=== PATIENT | female | born 1955 | race Caucasian/White ===

== ENCOUNTER 2025-04-06 13:07 | Inpatient (IN) | payer MEDICARE, OTHER ==
[~2025-04-06] VITALS: Ht 165.1 cm; Wt 67.1 kg
[~2025-04-06 13:07] MED LIST: ACET-653 PO
[2025-04-06] MEDS ORDERED: TAMS1CAP17 PO (13:17)
[2025-04-06] MEDS ORDERED: CYCL1DRO10 OU (13:17)
[2025-04-06] MEDS ORDERED: SEMA0.257 INJ (13:17)
[2025-04-06] MEDS ORDERED: LOSA50TA28 PO (13:17)
[2025-04-06] MEDS ORDERED: ONDA-282 PO (13:17)
[2025-04-06] MEDS ORDERED: OXYC1TAB23 PO (13:17)
[2025-04-06] MEDS ORDERED: CIPR500T39 PO (13:17)
[2025-04-06] MEDS ORDERED: AMIT25TA19 PO (13:17)
[2025-04-06] MEDS: MORPHINE 2 MG/ML 1 ML VIAL IV ONE (14:25)
[2025-04-06] MEDS: NS (Normal Saline) 0.9% 1,000 ML IV ONE (14:25)
[2025-04-06 14:37] LABS: KETONE, URINE AUTO RFX TRACE mg/dL (NEGATIVE); MUCUS, URINE RFX SMALL (NEGATIVE); NITRITE, URINE AUTO RFX NEGATIVE (NEGATIVE); RBC, URINE AUTO RFX TNTC /HPF (0-3); SQUAM EPITHELIAL CELL UR AURFX 3 /HPF (0-6)
[2025-04-06 14:38] LABS: LEUKOCYTE ESTERASE UR AUTO RFX TRACE (NEGATIVE); WBC, URINE AUTO RFX 28 /HPF (0-3)
[2025-04-06 15:00] LABS: BASO # 0.0 10^3/uL (0.0-0.2); BASO % 0.2 % (0.0-1.0); EOS # 0.0 10^3/uL (0.0-0.5); EOS % 0.1 % (0.0-3.0); LYMPH # 1.4 10^3/uL (1.5-5.0); LYMPH % 12.6 % (24.0-44.0); MONO # 0.9 10^3/uL (0.0-0.8); MONO % 7.8 % (2.0-8.0); NEUTROPHILS # 9.0 10^3/uL (1.5-8.5); NEUTROPHILS % 79.0 % (36.0-66.0); PLATELET COUNT, AUTOMATED 201 10^3/uL (150-450)
[2025-04-06] MEDS: MORPHINE 4 MG/ML 1 ML VIAL IV ONE (15:34)
[2025-04-06] MEDS ORDERED: ROSU5TAB49 PO (16:43)
[2025-04-06] MEDS ORDERED: VARE0.03 (16:43)
[2025-04-06] MEDS ORDERED: ZOLP5TAB PO (16:43)
[2025-04-06] MEDS ORDERED: [UNRECOGNIZED DRUG - CODE] PO (16:43)
[2025-04-06] MEDS ORDERED: NIFE1TAB51 PO (16:43)
[2025-04-06] MEDS ORDERED: CEVI1CAP PO (16:44)
[2025-04-06] MEDS ORDERED: HOME MED LIST COMPLETE! XX SCH (16:45)
[2025-04-06 17:57] LABS: CALCIUM LEVEL 8.1 MG/DL (8.3-10.6); CARBON DIOXIDE LEVEL 24.0 MMOL/L (20-31); CHLORIDE LEVEL 109.0 MMOL/L (98-107); CREATININE FOR GFR 1.5 MG/DL (0.55-1.30); GLOMERULAR FILTRATION RATE 37.7 (>45); POTASSIUM SERUM 4.3 MMOL/L (3.5-5.1); SODIUM LEVEL 144.0 MMOL/L (136-145)
[2025-04-06] MEDS ORDERED: MAALOX 30 ML SUSP *UDC PO PRN (18:25)
[2025-04-06] MEDS ORDERED: ACETAMINOPHEN 325 MG TAB PO PRN (18:25)
[2025-04-06] MEDS ORDERED: ONDANSETRON 4MG ORAL DISINTEGRATING TAB PO PRN (18:30)
[2025-04-06] MEDS: cefTRIAXone SOD 1 GM in DEXTROSE 5% (D5W) ADV/MINI-BAG 50 ML IV SCH (20:05)
[2025-04-06] MEDS ORDERED: LOSARTAN 50 MG TABLET PO SCH (21:00)
[2025-04-06] MEDS: ROSUVASTATIN 10 MG TAB PO SCH (22:24)
[2025-04-06] MEDS: DOCUSATE SODIUM 100 MG CAPSULE PO SCH (22:25)
[2025-04-06] MEDS: AMITRIPTYLINE 25 MG TABLET PO SCH (22:25)
[2025-04-06] MEDS: HEPARIN SOD 5000 UNITS/ML 1 ML VIAL/SYRINGE SC SCH (22:29)
[2025-04-07] MEDS: MORPHINE 2 MG/ML 1 ML VIAL IV PRN ×2 (00:04→20:23)
[2025-04-07 06:30] LABS: BASO # 0.0 10^3/uL (0.0-0.2); BASO % 0.3 % (0.0-1.0); EOS # 0.1 10^3/uL (0.0-0.5); EOS % 0.7 % (0.0-3.0); LYMPH # 1.8 10^3/uL (1.5-5.0); LYMPH % 24.4 % (24.0-44.0); MONO # 0.6 10^3/uL (0.0-0.8); MONO % 7.8 % (2.0-8.0); NEUTROPHILS # 4.9 10^3/uL (1.5-8.5); NEUTROPHILS % 66.5 % (36.0-66.0); PLATELET COUNT, AUTOMATED 141 10^3/uL (150-450)
[2025-04-07 06:59] LABS: CALCIUM LEVEL 8.3 MG/DL (8.3-10.6); CARBON DIOXIDE LEVEL 28.0 MMOL/L (20-31); CHLORIDE LEVEL 108.0 MMOL/L (98-107); CREATININE FOR GFR 1.52 MG/DL (0.55-1.30); GLOMERULAR FILTRATION RATE 37.1 (>45); MAGNESIUM LEVEL 1.8 MG/DL (1.8-2.4); POTASSIUM SERUM 4.0 MMOL/L (3.5-5.1); SODIUM LEVEL 144.0 MMOL/L (136-145)
[2025-04-07] MEDS: PANTOPRAZOLE 40MG TAB PO SCH (08:52)
[2025-04-07] MEDS ORDERED: TAMSULOSIN 0.4 MG CAP PO SCH (09:00)
[2025-04-07] MEDS: NS 0.45% 1,000 ML IV SCH (11:42)
[2025-04-07] MEDS ORDERED: NIFEdipine 30 MG XL TAB PO SCH (12:00)
[2025-04-07] MEDS ORDERED: BISACODYL 5 MG TAB PO PRN (15:50)
[2025-04-07] MEDS ORDERED: FLEET ENEMA PR PRN (15:55)
[2025-04-07] MEDS ORDERED: SCOPOLAMINE 1MG TRANSDERMAL PATCH As Ordered ONE (17:45)
[2025-04-07] MEDS ORDERED: ONDANSETRON 4MG 2ML VIAL As Ordered ONE (17:52)
[2025-04-07] MEDS ORDERED: dexAMETHasone 4 MG/ML 1 ML VIAL As Ordered ONE (17:52)
[2025-04-07] MEDS ORDERED: MIDAZOLAM INJ 2 MG/2 ML VIAL As Ordered ONE (17:52)
[2025-04-07] MEDS ORDERED: KETOROLAC 30 MG/ML 1 ML VIAL As Ordered ONE (17:52)
[2025-04-07] MEDS ORDERED: LIDOCAINE 2% 100 MG/5 ML SDV (FOR ANES.) As Ordered ONE (17:52)
[2025-04-07] MEDS ORDERED: ACETAMINOPHEN 1000MG/100ML IV BAG As Ordered ONE (18:19)
[2025-04-07] MEDS: ISOVUE-300 61% 100 ML VIAL As Ordered ONE (18:45)
[2025-04-07 19:40] VITALS: BP 142/63; TEMP 99; O2SAT 94
[2025-04-07 20:10] VITALS: BP 136/74; TEMP 99; O2SAT 95
[2025-04-07 20:40] VITALS: BP 134/56; TEMP 99; O2SAT 94
[2025-04-07 21:40] VITALS: BP 146/62; TEMP 99; O2SAT 94
[2025-04-07] MEDS: SENNOSIDES/DOCUSATE SODIUM 8.6 MG/50MG TAB PO PRN (21:42)
[2025-04-07] MEDS: MOM 30 ML SUSPENSION UDC PO PRN (21:42)
[2025-04-07 22:40] VITALS: BP 122/64; TEMP 99; O2SAT 95
[2025-04-08] VITALS: BP 124/62; TEMP 98.4; O2SAT 97
[2025-04-08 04:00] VITALS: BP 121/57; TEMP 98.2; O2SAT 95
[2025-04-08 06:07] LABS: BASO # 0.0 10^3/uL (0.0-0.2); BASO % 0.2 % (0.0-1.0); EOS # 0.0 10^3/uL (0.0-0.5); EOS % 0.0 % (0.0-3.0); LYMPH # 1.0 10^3/uL (1.5-5.0); LYMPH % 16.8 % (24.0-44.0); MONO # 0.4 10^3/uL (0.0-0.8); MONO % 6.7 % (2.0-8.0); NEUTROPHILS # 4.3 10^3/uL (1.5-8.5); NEUTROPHILS % 75.9 % (36.0-66.0); PLATELET COUNT, AUTOMATED 147 10^3/uL (150-450)
[2025-04-08 06:34] LABS: CALCIUM LEVEL 8.5 MG/DL (8.3-10.6); CARBON DIOXIDE LEVEL 31.0 MMOL/L (20-31); CHLORIDE LEVEL 107.0 MMOL/L (98-107); CREATININE FOR GFR 1.13 MG/DL (0.55-1.30); GLOMERULAR FILTRATION RATE 53.0 (>45); POTASSIUM SERUM 4.3 MMOL/L (3.5-5.1); SODIUM LEVEL 145.0 MMOL/L (136-145)
[2025-04-08 08:00] VITALS: BP 123/53; TEMP 98.2; O2SAT 97
[2025-04-08] MEDS ORDERED: LEVO1TAB39 PO (09:34)
[2025-04-08 10:00] VITALS: O2SAT 94
[2025-04-08] MEDS ORDERED: OXYB5TAB14 PO (10:16)
[2025-04-08] MEDS ORDERED: PERC10TA26 PO (10:16)
== END 2025-04-08 13:43 | disposition home or self-care (01) | DRG 854 ==
LOC: M ED 13:07 → M ED INP 18:22 → M MSPAV 04-07 15:09
PROVIDERS: ADMIT Student in an Organized Health Care Education/Training Program; ATTEND General Practice
PROC: 0TF68ZZ Fragmentation in Right Ureter, Via Natural or Artificial Opening Endoscopic (ICD-10-PCS; 2025-04-07)
PROC: 0T768DZ Dilation of Right Ureter with Intraluminal Device, Via Natural or Artificial Opening Endoscopic (ICD-10-PCS; principal; 2025-04-07 16:00)
DX: A41.9 Sepsis, unspecified organism (principal); N13.6 Pyonephrosis; J84.9 Interstitial pulmonary disease, unspecified; N17.9 Acute kidney failure, unspecified; I12.9 Hypertensive chronic kidney disease with stage 1 through stage 4 chronic kidney disease, or unspecified chronic kidney disease; M35.00 Sjogren syndrome, unspecified; N18.30 Chronic kidney disease, stage 3 unspecified; M32.9 Systemic lupus erythematosus, unspecified; R91.1 Solitary pulmonary nodule; Z88.6 Allergy status to analgesic agent; Z79.899 Other long term (current) drug therapy

== ENCOUNTER 2025-07-09 10:15 | Day surgery (SDC) | payer MEDICARE, OTHER ==
[~2025-07-09] VITALS: Ht 165.1 cm; Wt 68.8 kg
[~2025-07-09 10:15] MED LIST changes: +AMIT25TA19 PO; +CEVI1CAP PO; +CIPR500T39 PO; +CYCL1DRO10 OU; +LEVO1TAB39 PO; +LOSA50TA28 PO; +MELA10CA PO; +MM S100C PO; +NIAC500T29 PO; +NIFE1TAB51 PO; +ONDA-282 PO; +OXYB5TAB14 PO; +OXYC1TAB23 PO; +PERC10TA26 PO; +PHENYLEPHRINE 10% OPHTH SOL 5ML OS PRN; +PROC10TA5 PO; +REST0.057 OP; +ROSU5TAB49 PO; +SEMA0.257 INJ; +TAMS1CAP17 PO; +TUMS500C PO; +VARE0.03; +ZOLP5TAB9 PO; +[UNRECOGNIZED DRUG - CODE] PO
[2025-07-09] MEDS ORDERED: MIDAZOLAM INJ 2 MG/2 ML VIAL As Ordered ONE (11:05)
[2025-07-09] MEDS: TROPICAMIDE 1% OPHTH SOLN 15ML OS SCH (12:17)
[2025-07-09] MEDS: OFLOXACIN 0.3 % (OCUFLOX) OPTH SOL 5ML OS ONE (12:17)
[2025-07-09] MEDS: CYCLOPENTOLATE 1% OPHTH SOLN 2 ML BTL OS SCH (12:17)
[2025-07-09] MEDS: PHENYLEPHRINE 2.5% OPHTH SOL 2ML OS SCH (12:17)
[2025-07-09] MEDS: LIDOCAINE 3.5% 1 ML OPHTH TOPICAL GEL OU ONE (12:18)
[2025-07-09] MEDS ORDERED: ONDANSETRON 4MG 2ML VIAL As Ordered ONE (12:22)
[2025-07-09] MEDS: LIDOCAINE 1% SDV 5 ML VIAL As Ordered ONE (12:26)
[2025-07-09] MEDS: BSS IRRIG/VANCO(10MG)/TOBRA(5MG)/EPINEPH(1:1000-0.5CC)500ML BAG-ORONLY As Ordered ONE (12:26)
[2025-07-09] MEDS: CEFUROXIME 1 MG/0.1 ML INTRACAMERAL INJ As Ordered ONE (12:26)
[2025-07-09 12:40] VITALS: BP 113/54; TEMP 97.6; O2SAT 94
== END 2025-07-09 12:51 | disposition home or self-care (01) ==
LOC: M SDC 10:15
PROVIDERS: ATTEND Ophthalmology
DX: H25.12 Age-related nuclear cataract, left eye (principal); I10 Essential (primary) hypertension; E78.5 Hyperlipidemia, unspecified; Z92.81 Personal history of extracorporeal membrane oxygenation (ECMO); Z79.899 Other long term (current) drug therapy; Z87.891 Personal history of nicotine dependence; Z88.8 Allergy status to other drugs, medicaments and biological substances
CPT/HCPCS: 66984; J0697; J2250; J2405; J3010; V2632